=== PATIENT | male | born 1975 | race Caucasian/White ===

== ENCOUNTER 2023-10-16 09:52 | Inpatient (IN) | payer OTHER, SELFPAY ==
[2023-10-14 12:57] VITALS: BP 198/120
[2023-10-14 13:38] LABS: % Basophils 0.7 % (0-2); % Eosinophils 1.6 % (0-6); % Immature Granulocytes 1.4 % (0-0.5); % Lymphocytes 21.1 % (20.5-51.1); % Monocytes 8.2 % (1.7-9.3); Absolute Basophils 0.1 10^3/uL (0-0.2); Absolute Eosinophils 0.2 10^3/uL (0-0.7); Absolute Immature Granulocytes 0.1 10^3/uL (0-0.05); Absolute Lymphocytes 2.1 10^3/uL (1.2-3.4); Absolute Monocytes 0.8 10^3/uL (0.1-0.6); Absolute Neutrophils 6.7 10^3/uL (1.4-6.5); Hematocrit 33.7 % (39.0-52.0); Hemoglobin 12.4 g/dL (13.0-18.0); Mean Corp Hgb Conc. 36.8 g/dL (33.0-37.0); Mean Corpuscular Hgb 28.4 pg (27.0-31.0); Mean Corpuscular Volume 77.3 fL (80.0-94.0); Mean Platelet Volume 9.7 fL (7.4-10.4); Nucleated Red Blood Cells % 0 % (-); Platelet Count 331 10^3/uL (130-400); Red Blood Cell Count 4.36 10^6/uL (4.70-6.10); Red Cell Dist. Width 13.2 % (11.5-14.5)
[2023-10-14 13:49] LABS: ALT (SGPT) 48 U/L (0-50); AST (SGOT) 43 U/L (17-59); Albumin 4.2 g/dl (3.5-5.0); Alkaline Phosphatase 82 U/L (38-126); Blood Urea Nitrogen 9 mg/dl (9-20); Carbon Dioxide 29 mmol/L (22-30); Chloride 100 mmol/L (98-107); Glucose 236 mg/dl (70-99); Potassium 3.7 mmol/L (3.5-5.1); Sodium 138 mmol/L (135-145); Total Bilirubin 0.6 mg/dl (0.2-1.3); Total Protein 6.5 g/dl (6.3-8.2); eGFR > 60.00
--- NOTE | 2023-10-14 13:53 | ED.CVA ---
History of Present Illness
General
Chief Complaint: CVA/TIA Symptoms
Source: patient and records
Time Seen by Provider: 10/14/23 13:38
Onset of Stroke Symptoms
Onset of symptoms known: No
Time pt last seen normal is known: No
History of Present Illness
History of Present Illness:
This patient is a 48-year-old male who has been in this current rehab facility with a history of methamphetamine abuse for the last 13 days. He has been reportedly doing well. Patient and staff noted that his speech appeared slurred as of last
night and continues today. He also reports numbness in his left hand. The symptoms have been continuous. 'Aphasia' is noted on his transfer record, patient does not demonstrate aphasia in the emergency department. There is no history of focal
weakness, clumsiness, chest pain, shortness of breath, fever, chills, nausea, vomiting, neck pain, recent trauma or falls. He does note a mild headache. Patient had a UDS at the facility which is positive for benzos which would be expected given
his recent detox for approximately 2 weeks ago. Patient denies recent drug use. Patient denies visual changes such as double vision or blurry vision, trouble swallowing.
Past History
Past History
ED Past Medical History: HTN, Psychiatric and Other (HIV)
Social History
Tobacco: Smoker
Drug: Former user
Personal: Single
Living: homeless
Phy Exam
Physical Exam
Physical Exam:
GENERAL: Alert , in no apparent distress
EYE: pupils equal and reactive, EOMI
NECK: Supple, no significant adenopathy.
ENT: o/p clr, mmm.
CARDIAC: Regular rate and rhythm .
LUNGS: Clear breath sounds bilaterally, no acute respiratory distress, no wheezes/rales/rhonchi
ABDOMEN: Soft, without focal tenderness, no r/g, no cvat
NEUROLOGICAL: Alert and oriented, no focal neuro deficits except slurred speech. [id number] normal, cranial nerves II through XII intact, sensory intact to light touch, gait normal, motor 5 out of 5, etc.
SKIN: Warm and dry, skin intact.
MUSCULOSKELETAL: No edema, well perfused.
PSYCH: Normal and appropriate interaction.
Scores
NIH Stroke Score
Level of Consciousness: 0 - Alert
LOC Questions: 0-Answers both correctly
LOC Commands: 0-Performs both correctly
Best Horizontal Gaze: 0-Normal
Visual Rodríguez: 0=Normal, no visual loss
Facial Palsy: 0=Normal, symmetrical
Motor - Right Arm: 0=No drift 10 seconds
Motor - Left Arm: 0=No drift 10 seconds
Motor - Right Le-No drift 5 seconds
Motor - Left Le-No drift 5 seconds
Limb Ataxia: 0-Absent
Sensation: 0-Normal
Best Language: 0-No aphasia
Dysarthria: 1-Mild slurring
Extinction and Inattention: 0-No abnormality
Total Score:: 1
Course
Orders/Labs/Results
Orders:
Orders
10/14/23 13:01
Electrocardiogram (*1) Urgent
Reason for Study: TIA/Stroke
CT Head W/o Iv Contrast Urgent
Comment:
Reason For Exam: slurred speech
EKG- Treatment ONCE
10/14/23 13:28
Complete Blood Count/With Diff Urgent
Comprehensive Metabolic Panel Urgent
10/14/23 15:00
Drug Screen, Urine [Urine Drug Abuse Screen] Urgent
Date Specimen was Collected: 10/14/23
Time Specimen was Collected: 14:59
Fentanyl, Urine Urgent
10/14/23 15:57
NEUROLOGY CONSULT Routine
Consulting Provider: Casper Borjas
Was physician already notified: Yes
10/14/23 16:08
Admit/Transfer Patient As Directed
Co-Sign Provider:
Level of Care: Observation services
Assign to:: Telemetry
Physician / Group: nilesh/hospitalist
Diagnosis: slurred speech tia r/o cva
Reason for Telemetry: CVA/TIA
Date to Stop Telemetry: 10/17/23
Time to Stop Telemetry: 11:00
10/14/23 16:09
Code Status As Directed
Resuscitation Status: Full Code
10/14/23 16:21
CT Head & Neck Angio W/wo IV Urgent
Comment:
Reason For Exam: pontine lesion. slurred speech
MR Brain W/o & With Contrast Routine
Comment:
Reason For Exam: pontine lesion. slurred speech
Recent pill cam endoscopy?: No
10/14/23 16:30
0.9% Sodium Chloride 1000 ml [Nss] 1,000 ml IV 80 mls/hr
10/14/23 18:20
Acetaminophen [Tylenol] 1,000 mg PO TIDPRN PRN
Calcium Carbonate Chewable [Tums] 1 tablet PO QIDPRN PRN
Dicyclomine [Bentyl] 20 mg PO TIDPRN PRN
Melatonin 6 mg PO HSPRN PRN
Tizanidine [Zanaflex] 4 mg PO TIDPRN PRN
Trazodone [Desyrel] 50 mg PO HSPRN PRN
10/14/23 18:20
Case Management Consult ONCE
Case Management Consult: Discharge Planning
Comment: stroke/tia
DIETARY CONSULT Routine
Reason for Consult: stroke/TIA
Benefits Consultant Urgent
Activity As Directed
Activity Level: Out of Bed-Early Mobility
NIH Stroke Scale As Directed
Directions: Per protocol
Comment: every shift and with any change in condition or mental status
Neurological Checks As Directed
Frequency: q4h
Additional Instructions:: q4h x 24h upon admission to the floor, then qshift & with any change in condition
and mental status
Patient Education As Directed
Type: Stroke education packet
Comment: provide to patient and family
Pneumatic Compression Sleeves As Directed
Type: Knee high
Swallow Screening CVA/TIA ONLY As Directed
Comment: NPO until swallowing screening completed
If patient FAILS swallow screening:: NPO, Speech Therapy consult, Aspiration Precautions
If patient PASSES swallow screening, diet:: Full Liquid
Above diet order entered?: Yes- passed screening
Vital Signs As Directed
Frequency: Per unit guidelines
Ot Eval And Treat Routine
Pt Eval And Treat Routine
Activity Level: Out of Bed-Early Mobility
Speech Therapy Eval & Treat Routine
DX Deep Vein Thrombosis Video Routine
10/14/23 18:38
HydrOXYZINE [Atarax] 50 mg PO Q6HPRN PRN
10/15/23 04:58
BMP [Basic Metabolic Panel] IN AM
Cardiovascular Evaluation IN AM
Glycohemoglobin (HgbA1c) IN AM
10/15/23 08:00
Bictegrav/Emtricit/Tenofov [Biktarvy 50-200-25 mg Tablet] 1 tablet PO DAILY
10/17/23 11:00
DC Protocol for Telemetry ONCE
Abnormal Lab Results
10/14/23 10/14/23
13:28 15:00
RBC 4.36 L 10^6/uL
(4.70-6.10)
Hgb 12.4 L g/dL
(13.0-18.0)
Hct 33.7 L %
(39.0-52.0)
MCV 77.3 L fL
(80.0-94.0)
Abs Immat Gran (auto) 0.1 H 10^3/uL
(0-0.05)
Absolute Neuts (auto) 6.7 H 10^3/uL
(1.4-6.5)
Absolute Monos (auto) 0.8 H 10^3/uL
(0.1-0.6)
Immature Gran % 1.4 H %
(0-0.5)
Glucose 236 H mg/dl
(70-99)
U Benzodiazepines Scrn Positive H
(Negative)
10/14/23 13:28
10/14/23 13:28
Vital Signs
Initial and Last Documented VS:
Initial Vital Signs
Temp Pulse Resp BP Pulse Ox
98.0 F 83 16 198/120 98
10/14/23 12:57 10/14/23 12:57 10/14/23 12:57 10/14/23 12:57 10/14/23 12:57
Last Documented Vital Signs
Temp Pulse Resp BP Pulse Ox
97.8 F 75 18 165/104 97
10/15/23 07:00 10/15/23 07:00 10/15/23 07:00 10/15/23 07:00 10/15/23 07:00
*Critical Care Note
Total Time (30-74mins, 75-104mins- exclusive of procedures): Not Applicable
Update Note
Update Note:
Patient presents to the Emergency Department with slurred speech
Number and Complexity of Problems Addressed at the Encounter
� Chronic conditions affecting care:
� Acute Exacerbation and/or Progression of Chronic Illness:
� Differential Diagnosis includes: But not limited to CVA, brain mass, medication effect, etc. etc.
Amount and/or Complexity of Data to be Reviewed and Analyzed
� I performed an independent evaluation of and my interpretation is:
EKG:
CT: Read by radiology NAD
Xrays:
Laboratory Studies:generally unremarkable uds pending
Other:
� Review of other/old records reveals:
� Clinical information was obtained by an independent historian:
� Prescriptions/Medications Considered but not given:considered asa however allergy (tongue swelling) noted
� Further testing considered but not performed:
Risk of Complications and/or Morbidity or Mortality of Patient Management
� Social determinants of health affecting care:
� Discussion with other providers (PCP, Hospitalists, Consultants, etc):
� Escalation of care including admission/observation vs risk of discharge considered: 338 Pm pt with continued sxs, concern re?CVA. Not a lytic/IAT candidate given NIH 1 and sxs began ?almost 24 hrs ago (unceratin onset but
definitely abnl as of dinner time yesterday). Case d/w hospitalist for admission. Considered given asa however given allergy, not able to safely give.
ED Attending Note
-
Portions of this chart may have been created with voice recognition software.� Occasional wrong word or��sound alike� substitutions may have occurred due to the inherent limitations of voice recognition software.
Discharge Plan
Departure
Patient Disposition: Admit
Date of Disposition: 10/14/23
Time of Disposition: 15:40
Admit to: Telemetry
Presentation/result/management discussed w/ accepting MD/DO: Hospitalist
Condition: Fair
Discharge Problem:
slurred speech
Interventions
Interventions:
*Risk Screen - Suicide Last Done: 10/14/23 13:38
*General Assessment Last Done: 10/14/23 13:39
*Neglect/Abuse Screening Last Done: 10/14/23 13:38
ED- Fall Risk Assessment Last Done: 10/14/23 18:14
*ED COVID-19 Vaccine History Last Done: 10/14/23 13:39
*Nursing Disposition Last Done: 10/14/23 18:14
ED- Pulmonary Assessment Last Done: 10/14/23 14:07
ED- Neurological Assessment Last Done: 10/14/23 14:07
ED- Cardiac Assessment Last Done: 10/14/23 14:07
ED Swallowing Screen Last Done: 10/14/23 14:07
Discharge Date and Time
Discharge Date/Time: 10/14/23 18:19
[2023-10-14 15:22] LABS: Amphetamines Negative (Negative); Barbiturates Negative (Negative); Benzodiazepines Positive (Negative); Buprenorphine Negative (Negative); Cocaine Negative (Negative); Marijuana Negative (Negative); Methadone Negative (Negative); Methamphetamines Negative (Negative); Opiates Negative (Negative); Phencyclidine Negative (Negative); Tricyclic Antidepressants Negative (Negative)
[2023-10-14 15:54] LABS: Fentanyl, Urine Negative (Negative)
--- NOTE | 2023-10-14 15:58 | HPS.HSE ---
Addendum entered and electronically signed by Valentin Del Angel MD 10/14/23 18:55:
allergic to asa.
start plavix load 300mg then 75mg daily.
Awaiting further neurology recs
Original Note:
Family Physician
-
Family Physician: NOT KNOW UNKNOWN - PT DOES
Chief Complaint
-
slurred speech
History of Present Illness
48-year-old male extensive past medical history is presenting from detox rehab facility with slurred speech. Patient stated he noticed slurred speech last night intermittently and then this morning and slurred speech persisted. Patient slurred
speech was noted at rehab and he was standing to the hospital. Patient has been in detox rehab and detoxing from methamphetamines. Smokes methamphetamines prior to arrival. Benzos on UDS was positive which was given at rehab. History of IV drug
abuse injecting heroin however quit 10 years ago. Denies any vision problems. Denies any nausea or vomiting. Denies any neck pain. States some mild tingling in left hand. Denies any chest pain or shortness of breath abdominal pain or dysuria
or hematuria. States he took aspirin long time ago and had tongue swelling. Denies allergies to Plavix.
Medical History
Past Medical History
Past Medical History: Reports Other
Additional Past Medical History:
HIV
Primary HTN
Prediabetes
History of tobacco abuse
History of IV drug abuse
Amphetamine abuse
Past Surgical History: Reports Appendectomy and Other (Hemorrhoid surgery)
Social History
Tobacco: Former Smoker
Alcohol: Occasional
Drug: Former User, IVDA (Current opioids heroin 10 years ago) and Other (Smokes amphetamines and currently in rehab)
Family History
Family History: Other (Stroke in father and brother)
Allergies / Home Medications
Allergies reflects when Allergies were last updated in [employer].
Home Medications with original date entered in [employer]
Allergy/Medication List:
Allergies
Allergy/AdvReac Type Severity Reaction Status Date / Time
aspirin Allergy Tongue Verified 10/14/23 13:00
Swelling
shellfish derived Allergy Shortness Verified 10/14/23 13:00
of Breath
Home Medications
acetaminophen 500 mg tablet (Tylenol Extra Strength) 1,000 mg PO TIDPRN PRN mild pain 10/14/23
bictegravir 50 mg-emtricitabine 200 mg-tenofovir alafenam 25 mg tablet (Biktarvy) 1 tab PO DAILY 10/14/23
bismuth subsalicylate 262 mg tablet (Pepto-Bismol) 524 mg PO Q6HPRN PRN gerd 10/14/23
calcium carbonate (Tums) 400 mg PO QIDPRN PRN gerd 10/14/23
clonidine HCl 0.1 mg tablet 0.1 mg PO Q6HPRN PRN hypertenison 10/14/23
dicyclomine 20 mg tablet 20 mg PO TIDPRN PRN spasms 10/14/23
docusate sodium 100 mg capsule (Colace) 100 mg PO BIDPRN PRN constipation 10/14/23
hydroxyzine pamoate 50 mg capsule 50 mg PO Q6HPRN PRN anxiety 10/14/23
ibuprofen 200 mg tablet (Advil) 600 mg PO Q6HPRN PRN mild pain 10/14/23
loperamide 2 mg tablet 2 mg PO Q8HPRN PRN diarrhea 10/14/23
magnesium hydroxide 400 mg/5 mL oral suspension (Milk of Magnesia) 2,400 mg PO TIDPRN PRN constipation 10/14/23
melatonin 3 mg tablet 6 mg PO HSPRN PRN sleep 10/14/23
ondansetron HCl 4 mg tablet 4 mg PO BIDPRN PRN nasuea 10/14/23
tizanidine 4 mg tablet 4 mg PO TIDPRN PRN spasms 10/14/23
trazodone 50 mg tablet 50 mg PO HSPRN PRN sleep 10/14/23
Review of Systems
-
History Source: Patient
A 12 point ROS was completed and negative except as noted: Yes
Physical Exam
Vital Signs
Vital Signs
Temp Pulse Resp BP Pulse Ox
98.0 F 83 16 198/120 98
10/14/23 12:57 10/14/23 12:57 10/14/23 12:57 10/14/23 12:57 10/14/23 12:57
Physical Exam
General: Well Developed, Well Nourished and No Apparent Distress
HEENT: NormoCephalic, Moist mucous membranes and Atraumatic
Respiratory: Clear
Cardiac: S1/S2 and Regular Rhythm; No Murmur or Rub
GI: Soft, Non Tender, Non Distended and Normal Bowel Sounds; No Organomegaly
Rectal: Deferred by Provider
Musculoskeletal: No Clubbing, No Cyanosis and No Edema
Skin: No Rash
Neuro: Awake, Alert, No Sensory Deficits and Slurred Speech; No Facial Droop, Tremors or Sedated
Psych: Calm
Laboratory Results
-
10/14/23 13:28
10/14/23 13:28
Laboratory Results
Total Bilirubin 0.6 mg/dl (0.2-1.3) 10/14/23 13:28
AST 43 U/L (17-59) 10/14/23 13:28
ALT 48 U/L (0-50) 10/14/23 13:28
Alkaline Phosphatase 82 U/L (38-126) 10/14/23 13:28
Impression/Plan
-
#Slurred speech and left hand tingling likely secondary TIA rule out CVA
Discussed with neurologist recommending CT head and neck angiogram and recommended MRI brain with and without contrast-ORDERED
Neurochecks and NIH stroke scale
Permissive hypertension
Allergy to aspirin can consider Plavix? Await further neurology recommendation
Physical and Occupational Therapy and speech therapy evaluation
Liquid diet for now till speech evaluation
Check lipid panel A1c
Neurology evaluation
Primary hypertension
Permissive hypertension for now
Restart meds tomorrow morning
Prediabetes
Check A1c
HIV unknown CD4 count
Continue Biktarvy
Polysubstance abuse amphetamines opioids
Return back to rehab upon discharge
States still has 50 days left for detox
DVT prophylaxis SCDs for now
I spent a total of 78 minutes with the patient or on the floor. More than 50% of this time involved counseling and coordination of care.
[2023-10-14] MEDS: PLAVIX 300 MG PO (19:26)
[2023-10-14] MEDS: NSS 1000 IV (19:26)
[2023-10-14 20:30] VITALS: BP 182/104; BMI 31.4
[2023-10-14 23:12] VITALS: BP 178/106
[2023-10-15] VITALS (8 sets, daily range): BP systolic 165–188; BP diastolic 98–118; PULSE 77; O2SAT 96
[2023-10-15 05:48] LABS: Blood Urea Nitrogen 7 mg/dl (9-20); Calcium 8.7 mg/dl (8.4-10.2); Carbon Dioxide 29 mmol/L (22-30); Chloride 102 mmol/L (98-107); Estimated Creatinine Clearance 112 ml/min; Glucose 162 mg/dl (70-99); HDL Cholesterol 34 mg/dl; LDL Cholesterol, Calculated 127 mg/dl; Potassium 3.5 mmol/L (3.5-5.1); Sodium 139 mmol/L (135-145); Total Cholesterol 204 mg/dl (50-199); Triglyceride 216 mg/dl (10-149); Very Low Density Lipoprotein 43 mg/dl (0-30); eGFR > 60.00
[2023-10-15] MEDS: NSS 1000 IV ×2 (05:59→17:55)
[2023-10-15] MEDS: PLAVIX 75 MG PO (09:18)
[2023-10-15] MEDS: BIKTARVY 50-200-25 MG TABLET 1 TABLET PO (09:22)
[2023-10-15 09:41] LABS: Glycohemoglobin (HgbA1c) 8.3 % (4.0-5.6)
[2023-10-15] MEDS: TYLENOL 1000 MG PO (09:58)
--- NOTE | 2023-10-15 10:25 | PTOTSP ---
Dysphagia Evaluation
Oral/pharyngeal swallowing suspected to be grossly WFL. Patient with at least moderate dysarthria. See patient care note for details.
Recommend:
1. Regular, Thin Liquids
2. Medications as best tolerated
3. General aspiration precautions
4. Full speech/language/cognitive evaluation if appropriate results of MRI of Brain.
[2023-10-15] MEDS: COZAAR 50 MG PO (11:34)
--- NOTE | 2023-10-15 11:44 | W.PN.HOSP.TC ---
Today's Communication/Plan
-
MRI pending
Continue Plavix
Blood pressure meds
Continue with statin
Diabetic meds/diabetic nurse practitioner consulted
Rehab evaluation
Assessment / Plan
Assessment / Plan
General: Well Developed, Well Nourished and No Apparent Distress
HEENT: NormoCephalic, Moist mucous membranes and Atraumatic
Respiratory: Clear
Cardiac: S1/S2 and Regular Rhythm; No Murmur or Rub
GI: Soft, Non Tender, Non Distended and Normal Bowel Sounds; No Organomegaly
Rectal: Deferred by Provider
Musculoskeletal: No Clubbing, No Cyanosis and No Edema
Skin: No Rash
Neuro: Awake, Alert, No Sensory Deficits and Slurred Speech; possible slight right facial Droop, Tremors or Sedated, moving all 4 extremities. No weakness noted
Psych: Calm
#Slurred speech and left hand tingling likely secondary TIA rule out CVA
Discussed with neurologist recommending CT head and neck angiogram and recommended MRI brain with and without contrast-ORDERED
Neurochecks and NIH stroke scale
Permissive hypertension window completed and start blood pressure meds
Allergy to aspirin and thus ordered Plavix 300 mg loading dose on admission and 75 mg Plavix daily
Physical and Occupational Therapy and speech therapy evaluation
passed shallow eval-diet advanced to regular food consistency
Cholesterol elevated also started on Lipitor
A1c elevated
Neurology evaluation
Primary hypertension
Permissive hypertension for now
Probably noncompliant as outpatient
Start Cozaar 50 mg
Start Lopressor 12.5 mg twice daily
As needed meds ordered
Start with strict blood pressure control
Diabetes mellitus type 2
A1c 8.3
Diabetic nurse petitioner consulted
Insulin sliding scale Accu-Cheks
Can probably start metformin however did receive IV contrast
Will need teaching and glucometer
HIV unknown CD4 count
Continue Biktarvy
Polysubstance abuse amphetamines opioids
Return back to rehab upon discharge
States still has 50 days left for detox
DVT prophylaxis SCDs for now
Anticipated Discharge: > 48 hours
Subjective/Interval History
-
Date of Service: October 15, 2023
remains with slurred speech
mild improvement per pt
bp elevated -states takes lopressor? not on home med list
Objective Data
-
Labs:
Laboratory Results
10/15/23
04:58
Sodium 139
Potassium 3.5
Chloride 102
Carbon Dioxide 29
BUN 7 L
Creatinine 0.8
Glucose 162 H
Calcium 8.7
Vital Signs:
Vital Signs
Temp Pulse Resp BP Pulse Ox
98.4 F 79 20 180/110 97
10/15/23 11:00 10/15/23 11:00 10/15/23 11:00 10/15/23 11:00 10/15/23 11:00
I&O
10/14/23 10/15/23 10/16/23
06:59 06:59 06:59
Intake Total 480 / 480
Output Total 300 / 300
Balance 180 / 180
Data Reviewed
-
Total Time Spent with Patient (in minutes): 58
[2023-10-15] MEDS: LOPRESSOR 12.5 MG PO ×2 (11:57→20:17)
[2023-10-15 12:16] LABS: Glucose - Point of Care 165 mg/dl (70-99)
--- NOTE | 2023-10-15 12:20 | PN.DE.MGMTRT ---
Insulin Management
- -
10/15/2023 Diabetes Management Consult
Patient admitted 10/13 for CVA/TIA symptoms, slurred speech, tingling L hand. PMH Diabetes, HTN, HIV, methamphetamine use. Currently in rehab for substance abuse. A1C 8.3%, CR .8, eGFR > 60.
Patient is awake alert and oriented, able to discuss diabetes management. States he had pre diabetes then diabetes and was started on metformin. He had a glucose monitor but does not know where it is.
Will start metformin 1000 mg first dose now then BID with low corrective insulin.
Provided Contour Next glucose monitor and instructed on steps to self monitor. Patient states he is familiar, reinforced.
Will follow.
Diabetes History
- -
Type of Diabetes: 2
Pre-Admission Diabetes Regimen
10/14/23 10/15/23
13:28 04:58
Creatinine 0.8 0.8
Lab Results
Hemoglobin A1c 8.3 % (4.0-5.6) H 10/15/23 04:58
Insulin Pump Settings
IP Diabetes Regimen
10/14/23 10/15/23 10/15/23
13:28 04:58 12:15
Glucose 236 H 162 H
POC Glucose 165 H
Meal type: Breakfast
Amount consumed: 100%
Patient Education
[2023-10-15] MEDS: GLUCOPHAGE 1000 MG PO ×2 (12:51→17:55)
--- NOTE | 2023-10-15 14:45 | CM ---
Patient seen bedside, initial assessment completed. Patient resides at [facility] in [place]. CM spoke with Nurse Practitioner at [facility], Mau ([phone]), reports patient is able to return when clear for discharge, [facility] will provide
transportation. Mau confirms patient pharmacy used is either [facility] in [facility] or [facility] in [place]. Patient PCP Silvia Cerrato. CM reviewed OBS form, refused to sign, placed in chart. Someone from venues will be dropping off patients phone and
clerk rating. CM will continue to follow for all discharge planning needs.
Plan; return to [facility] when stable.
[2023-10-15] MEDS: APRESOLINE 10 MG IV ×2 (15:46→23:10)
[2023-10-15 16:47] LABS: Glucose - Point of Care 179 mg/dl (70-99)
[2023-10-15] MEDS: LIPITOR 40 MG PO (17:55)
[2023-10-15] MEDS: NOVOLOG FLEXPEN-LOW RESISTANCE 1 UNITS SC (17:56)
[2023-10-15 21:57] LABS: Glucose - Point of Care 133 mg/dl (70-99)
[2023-10-16] MEDS: TUMS 1 TABLET PO (02:00)
--- NOTE | 2023-10-16 02:16 | W.PN.UPDATE ---
Update Note
Progress Note Update
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
No change to NIH (2)
Already on asa and plavix since 10/13
Neuro consult pending
[2023-10-16 03:09] VITALS: BP 182/101
[2023-10-16] MEDS: APRESOLINE 10 MG IV ×2 (03:31→10:01)
[2023-10-16 06:21] LABS: % Basophils 0.4 % (0-2); % Eosinophils 0.6 % (0-6); % Lymphocytes 8.6 % (20.5-51.1); % Monocytes 4.7 % (1.7-9.3); % Neutrophils 84.7 % (42.2-75.2); Absolute Basophils 0.1 10^3/uL (0-0.2); Absolute Eosinophils 0.1 10^3/uL (0-0.7); Absolute Immature Granulocytes 0.1 10^3/uL (0-0.05); Absolute Lymphocytes 1.1 10^3/uL (1.2-3.4); Absolute Monocytes 0.6 10^3/uL (0.1-0.6); Absolute Neutrophils 10.5 10^3/uL (1.4-6.5); Hematocrit 40.2 % (39.0-52.0); Hemoglobin 14.6 g/dL (13.0-18.0); Mean Corp Hgb Conc. 36.3 g/dL (33.0-37.0); Mean Corpuscular Hgb 28.2 pg (27.0-31.0); Mean Corpuscular Volume 77.6 fL (80.0-94.0); Mean Platelet Volume 9.5 fL (7.4-10.4); Nucleated Red Blood Cells % 0 % (-); Platelet Count 361 10^3/uL (130-400); Red Blood Cell Count 5.18 10^6/uL (4.70-6.10); Red Cell Dist. Width 13.2 % (11.5-14.5); White Blood Cell Count 12.4 10^3/uL (4.8-10.8)
[2023-10-16 06:48] LABS: Blood Urea Nitrogen 10 mg/dl (9-20); Calcium 9.9 mg/dl (8.4-10.2); Carbon Dioxide 23 mmol/L (22-30); Chloride 101 mmol/L (98-107); Estimated Creatinine Clearance > 125 ml/min; Glucose 187 mg/dl (70-99); Potassium 3.8 mmol/L (3.5-5.1); Sodium 137 mmol/L (135-145); eGFR > 60.00
[2023-10-16 07:46] VITALS: BP 196/111
--- NOTE | 2023-10-16 08:07 | PN.DE.MGMTRT ---
Insulin Management
- -
10/16/2023 Diabetes Management Consult Follow up
Patient admitted 10/13 for CVA/TIA symptoms, slurred speech, tingling L hand. PMH Diabetes, HTN, HIV, methamphetamine use. Currently in rehab for substance abuse. A1C 8.3%, CR .8, eGFR > 60.
Patient is awake alert and oriented, able to discuss diabetes management. States he had pre diabetes then diabetes and was started on metformin. He had a glucose monitor but does not know where it is.
Metformin 1000 mg BID started yesterday with low corrective insulin. Patient required 1 unit corrective pre dinner. Glucose range 133 to 179. Glucose fasting 187 and pre lunch 211. Will add Januvia 100 mg daily, first dose now. Will follow
Provided Contour Next glucose monitor and instructed on steps to self monitor. Patient states he is familiar, reinforced.
Will follow.
Diabetes History
- -
Type of Diabetes: 2
Pre-Admission Diabetes Regimen
10/16/23
05:45
Creatinine 0.7
Lab Results
Hemoglobin A1c 8.3 % (4.0-5.6) H 10/15/23 04:58
Insulin Pump Settings
IP Diabetes Regimen
10/15/23 10/15/23 10/15/23
12:15 16:45 21:56
Glucose
POC Glucose 165 H 179 H 133 H
10/16/23
05:45
Glucose 187 H
POC Glucose
Meal type: Lunch
Amount consumed: 100%
Patient Education
[2023-10-16 08:11] LABS: Glucose - Point of Care 195 mg/dl (70-99)
[2023-10-16] MEDS: NSS 1000 IV (08:42)
[2023-10-16] MEDS: NOVOLOG FLEXPEN-LOW RESISTANCE 1 UNITS SC ×2 (08:43→17:25)
[2023-10-16] MEDS: PLAVIX 75 MG PO (08:44)
[2023-10-16] MEDS: LOPRESSOR 12.5 MG PO (08:44)
[2023-10-16] MEDS: COZAAR 50 MG PO (08:45)
[2023-10-16] MEDS: GLUCOPHAGE 1000 MG PO ×2 (08:45→17:24)
--- NOTE | 2023-10-16 09:10 | CON.NEURO4 ---
Consultation - Neurology 4
-
CONSULTING PHYSICIAN: Casper Borjas MD (Neurology)
REFERRING PHYSICIAN: Hospitalist
DICTATED BY: Casper Borjas
DATE/TIME OF REQUEST: October 14, 2023
DATE/TIME OF CONSULTATION: October 14, 2023 1600
Reason for Consultation: Slurred speech
History of Present Illness:
This is a 48 year old right handed male who has presented to the hospital with chief complaint of slurred speech. Of hypertension HIV amphetamine abuse who had been in his usual state of health till Saturday night when he had difficulty speaking.
Patient was at the rehab facility for detox. He did not seek medical attention at the time of onset. He came to the emergency room the next day. There was no associated headaches dizziness numbness or weakness of the face or extremities. His
speech was slurred and he could form complete sentences. No difficulty swallowing. No history of falls or head injuries no loss conscious no seizures.
No loss of balance incoordination or gait impairment. Following admission his speech remains slurred.. -
Past Medical History: Hypertension HIV amphetamine abuse
Surgical History: Appendectomy hemorrhoid surgery
Family History: History of stroke in his father and brother
Social History: Quit smoking
Allergies: Aspirin
Home Medications: Biktarvy Klonopin
Review of Symptoms:
Patient denies any fever, headache, chest pain, shortness of breath, GI or symptoms.
�Per the HPI.�All systems are reviewed negative except above.
NIHSS = 1 (Dysarthria)
�-
Vital Signs:
The patient has a blood pressure of
emp Pulse Resp BP Pulse Ox
98.0 F 83 16 198/120 98
10/14/23 12:57 10/14/23 12:57 10/14/23 12:57 10/14/23 12:57 10/14/23 12:57
Physical Exam:
The patient is afebrile, heart sounds S1 and S2 are regular , and chest is clear to auscultation bilaterally.
Neurologic Examination:
The patient is awake, alert and oriented x 3. He is able to follow commands and answer questions appropriately. There is no aphasia. However significant dysarthria.
On cranial nerve assessment, pupils are 3 mm bilateral, round and reactive to light and accommodation. Visual mandujano are full. Extraocular movements are intact. Facial sensations are intact and bilaterally symmetrical.
There is (L) facial asymmetry. Hearing is intact bilaterally to normal conversation volume. Tongue palate and uvula are midline. Sternocleidomastoid strengths are full bilaterally. Motor strengths are 5/5 bilateral upper and lower extremities on
medical research Belkofski scale. There is no drift or involuntary movement noted. Deep tendon reflexes are 2+ bilateral upper and lower extremities and Babinski is absent bilaterally.
Sensations of pain, touch, temperature and vibration are intact and bilaterally symmetrical.. Coordination is intact by finger to nose bilaterally.
Romberg's positive gait is unsteady
Lab Results: 10/14/23 13:28
10/14/23 13:28
Laboratory Results
Total Bilirubin 0.6 mg/dl (0.2-1.3) 10/14/23 13:28
AST 43 U/L (17-59) 10/14/23 13:28
ALT 48 U/L (0-50) 10/14/23 13:28
Alkaline Phosphatase 82 U/L (38-126) 0
Neuro Imaging: CT head shows left pontine ischemia
Impression:
Mr. ROE MENJIVAR is a 48 year old M who has presented to the hospital with chief complaint of slurred speech secondary to left pontine ischemic infarct
Recommendations:
1. Plavix 75 mg daily
2. MRI Head
3. Speech therapy
4. Lipitor
5. PT/OT
6. Continue current HAART
7. Echocardiogram
8. Neurology follow up OP
Discussed patient care with: Hospitalist
[2023-10-16] MEDS: BIKTARVY 50-200-25 MG TABLET 1 TABLET PO (09:14)
--- NOTE | 2023-10-16 10:39 | W.PN.HOSP.TC ---
Today's Communication/Plan
-
Await neurology input
Assessment / Plan
Assessment / Plan
General: Well Developed, Well Nourished and No Apparent Distress
HEENT: NormoCephalic, Moist mucous membranes and Atraumatic
Respiratory: Clear
Cardiac: S1/S2 and Regular Rhythm; No Murmur or Rub
GI: Soft, Non Tender, Non Distended and Normal Bowel Sounds; No Organomegaly
Rectal: Deferred by Provider
Musculoskeletal: No Clubbing, No Cyanosis and No Edema
Skin: No Rash
Neuro: Awake, Alert, No Sensory Deficits and Slurred Speech; possible slight right facial Droop, Tremors or Sedated, moving all 4 extremities. No weakness noted
Psych: Calm
Acute left pontine stroke -confirmed on MRI. Neurology to see today. Continue Plavix. Patient allergic to aspirin. Suspect related to uncontrolled hypertension.
LDL 127, total cholesterol 204. Continue atorvastatin.
Essential hypertension -with hypertensive emergency, present on admission. Blood pressure still elevated. Patient states he has been on lisinopril 10 mg daily and 0.1 mg clonidine daily for the past 2 weeks prior to admission. Does not check
blood pressures at home. Has been in drug rehab in [place] for the past 2 weeks. Normally lives in [place].
Currently on losartan 50 mg daily, metformin 12.5 mg twice daily.
DM2 with hyperglycemia -hemoglobin A1c 8.3%. Continue metformin. Diabetes education. Outpatient follow-up. Weight loss encouraged.
HIV unknown CD4 count
Continue Biktarvy
Polysubstance abuse - amphetamines, opioids
Return back to rehab upon discharge
States still has 50 days left for detox
Obesity due to excess calories
Full code
Anticipated Discharge: Within 24 hours
Subjective/Interval History
-
Date of Service: October 16, 2023
Patient seen and examined. No complaints.
Objective Data
-
Labs:
Laboratory Results
10/16/23
05:45
WBC 12.4 H
Hgb 14.6
Hct 40.2
Plt Count 361
Sodium 137
Potassium 3.8
Chloride 101
Carbon Dioxide 23
BUN 10
Creatinine 0.7
Glucose 187 H
Calcium 9.9
Vital Signs:
Vital Signs
Temp Pulse Resp BP Pulse Ox
98.0 F 101 17 179/109 95
10/16/23 07:46 10/16/23 08:45 10/16/23 07:46 10/16/23 10:01 10/16/23 07:46
I&O
10/15/23 10/16/23 10/17/23
06:59 06:59 06:59
Intake Total 480 / 480 4320 / 4320
Output Total 300 / 300 4750 / 4750
Balance 180 / 180 -430 / -430
Review of Systems
-
History Source: Patient
All other systems: Reviewed and negative
[2023-10-16 11:53] LABS: Glucose - Point of Care 211 mg/dl (70-99)
[2023-10-16 12:10] VITALS: BP 185/106
[2023-10-16] MEDS: NOVOLOG FLEXPEN-LOW RESISTANCE 2 UNITS SC (12:32)
[2023-10-16] MEDS: PROCARDIA XL (EXTENDED RELEASE) 30 MG PO (12:32)
[2023-10-16] MEDS: ZOFRAN 4 MG IV ×2 (12:48→22:37)
[2023-10-16] MEDS: JANUVIA 100 MG PO (14:41)
[2023-10-16 15:55] VITALS: BP 190/90
[2023-10-16 17:12] LABS: Glucose - Point of Care 171 mg/dl (70-99)
[2023-10-16] MEDS: LIPITOR 40 MG PO (17:25)
[2023-10-16 19:40] VITALS: BP 144/87
[2023-10-16 21:16] LABS: Glucose - Point of Care 153 mg/dl (70-99)
[2023-10-16] MEDS: TYLENOL 1000 MG PO (22:37)
[2023-10-16 23:05] VITALS: BP 139/76
[2023-10-17 03:35] VITALS: BP 153/86
[2023-10-17 07:20] VITALS: BP 139/80
[2023-10-17 07:29] LABS: Glucose - Point of Care 134 mg/dl (70-99)
[2023-10-17] MEDS: NOVOLOG FLEXPEN-LOW RESISTANCE SC (07:36)
--- NOTE | 2023-10-17 08:20 | PN.DE.MGMTRT ---
Insulin Management
- -
10/17/2023 Diabetes Management Consult Follow up
Patient admitted 10/13 for CVA/TIA symptoms, slurred speech, tingling L hand. PMH Diabetes, HTN, HIV, methamphetamine use. Currently in rehab for substance abuse. A1C 8.3%, CR .8, eGFR > 60.
Patient is awake alert and oriented, able to discuss diabetes management. States he had pre diabetes then diabetes and was started on metformin. He had a glucose monitor but does not know where it is.
Metformin 1000 mg BID started 10/14 with low corrective insulin. Patient required 2 units corrective pre lunch. Glucose range 153 to 211. Januvia 100 mg daily added to regimen 10/15 .
10/16 Glucose fasting 134. Will make no change to current regimen.
Provided Contour Next glucose monitor and instructed on steps to self monitor. Patient states he is familiar, reinforced.
Will follow.
Diabetes History
- -
Type of Diabetes: 2
Pre-Admission Diabetes Regimen
Lab Results
Hemoglobin A1c 8.3 % (4.0-5.6) H 10/15/23 04:58
Insulin Pump Settings
IP Diabetes Regimen
10/16/23 10/16/23 10/16/23
11:51 17:05 21:15
POC Glucose 211 H 171 H 153 H
10/17/23
07:27
POC Glucose 134 H
Meal type: Breakfast
Amount consumed: 50%
Patient Education
[2023-10-17] MEDS: PROCARDIA XL (EXTENDED RELEASE) 30 MG PO (08:41)
[2023-10-17] MEDS: JANUVIA 100 MG PO (08:42)
[2023-10-17] MEDS: PLAVIX 75 MG PO (08:42)
[2023-10-17] MEDS: GLUCOPHAGE 1000 MG PO (08:45)
[2023-10-17] MEDS: COZAAR 50 MG PO (08:45)
[2023-10-17] MEDS: BIKTARVY 50-200-25 MG TABLET 1 TABLET PO (09:08)
[2023-10-17 11:30] VITALS: BP 159/90
--- NOTE | 2023-10-17 11:55 | CM ---
Addendum entered by Mahnaz 10/17/23 13:20:
CM spoke with Mau from [facility], discussed patient for discharge today. Staff will pick patient up at 3:00 p.m.
Plan; discharge to [facility]
Original Note:
Patient seen bedside, reports no needs to CM at this time. Patient hopeful for discharge today. CM will continue to follow for all discharge planning needs.
Plan; return to [facility] when stable, Mau ([phone]) [employer]IST, call when ready for discharge, [facility].
[2023-10-17 11:56] LABS: Glucose - Point of Care 172 mg/dl (70-99)
--- NOTE | 2023-10-17 12:00 | W.PN.NEURO.1 ---
Today's Communication / Plan
-
Patient may be discharged on Plavix with strict blood pressure control
Neuro Assessment/Plan
Assessment
48-year-old right-handed male with history of HIV amphetamine abuse uncontrolled hypertension who had a left pontine infarct
Plan
Continue Plavix
Subjective/Objective
Subjective Data
Date of Service: October 17, 2023
Pat feels better. Speech has improved. Minimal slurring. No aphasia
Objective Data
Vital Signs
Temp Pulse Resp BP Pulse Ox
36.6 C 91 20 159/90 97
10/17/23 11:30 10/17/23 11:30 10/17/23 11:30 10/17/23 11:30 10/17/23 11:30
Lab Results
10/16/23 05:45
10/16/23 05:45
Sodium 137 mmol/L (135-145) 10/16/23 05:45
Potassium 3.8 mmol/L (3.5-5.1) 10/16/23 05:45
BUN 10 mg/dl (9-20) 10/16/23 05:45
Glucose 187 mg/dl (70-99) H 10/16/23 05:45
Calcium 9.9 mg/dl (8.4-10.2) 10/16/23 05:45
LDL Cholesterol, Calc 127 mg/dl 10/15/23 04:58
Ur Buprenorphine Negative (Negative) 10/14/23 15:00
Patient Allergies
aspirin Allergy (Verified 10/14/23 13:00)
Tongue Swelling
shellfish derived Allergy (Verified 10/14/23 13:00)
Shortness of Breath
Review of Systems
-
History Source: Patient
All other systems: Reviewed and negative
Constitutional: No Symptoms
EENT: No Symptoms Reported
Respiratory: No Symptoms
Cardiac: No Symptoms
Abdomen/GI: No Symptoms
Genitourinary: No Symptoms
Musculoskeletal: No Symptoms
Skin: No Symptoms
Neuro: Other (Dull headaches)
Endocrine: No Symptoms
Hematologic / Lymphatic: No Symptoms
Allergy / Immunology: No Symptoms
Physical Exam
-
General: Well Developed, Well Nourished and No Apparent Distress
Eyes: OU Absent Papilledema
HEENT: Normocephalic, Atraumatic and Poor Dentition
Neck: No Bruits Bilaterally
Respiratory: Clear to Auscultation
Cardiac: Regular Rhythm and No Murmur
GI: Normal Bowel Sounds
Skin: Unremarkable
Extremities: No Clubbing
Psych: Unremarkable
Extended Neurological Exam
Mood & Affect: Mood Unremarkable, Affect Unremarkable and Anxious
Attention Span & Concentration: Awake, Alert, Interactive and No Difficulty with 2 Step Request
Memory: Unremarkable, Able to Recall, Recalls Objects and Recalls Short Term
Tremor: Hand Tremor Absent and Head Tremor Absent
Involuntary Movement: None
Speech: Quality Unremarkable, Quantity Unremarkable, Rate of Production Unremarkable and Dysarthric
Cranial Nerve II: Left Eye: Pupillary Reactivity Unremarkable and Pupillary Size Unremarkable
Cranial Nerve II: Right Eye: Pupillary Reactivity Unremarkable, Pupillary Size Unremarkable and Visual Rodríguez Grossly Intact
Cranial Nerves III, IV, : Extraocular Movement: Extraocular Movement Full in all Directions
Cranial Nerve V: Facial Sensation: Intact to Pin Prick and Intact to Light Touch
Cranial Nerve VII: Facial Symmetry: Normal Facial Symmetry
Cranial Nerve VIII: Hearing: Unremarkable Hearing to Normal Conversational Volume
Cranial Nerves IX, X: Palate Movement: Palate Elevation Symmetric
Cranial Nerve XI: Shoulder Shrug: Unremarkable
Cranial Nerve XII: Tongue Protusion: Midline
Muscle Strength, Overall: Full Throughout
Muscle Bulk & Tone: Bulk Unremarkable and Tone Unremarkable
Pronator Drift: No Drift in Upper Extremities and No Drift in Lower Extremities
Deep Tendon Reflexes: Trace Throughout
Cold Sensation: Unremarkable
Vibration Sensation: Unremarkable
Touch Sensation: Unremarkable
Coordination: [id number] Testing Unremarkable
Babinski Sign: Absent Bilaterally
Gait & Station: Unremarkable Arm Swing, Up from Seated Without Problem and Up from Lying with Difficulty
Modified Radford Score (MRS)
-
Modified Nilay Scale (mRS): No significant disability. Able to carry out usual activities.
Score: 1
[2023-10-17 12:11] VITALS: BP 183/98; PULSE 97; O2SAT 97
[2023-10-17] MEDS: NOVOLOG FLEXPEN-LOW RESISTANCE 1 UNITS SC (12:14)
--- NOTE | 2023-10-17 13:05 | W.PN.HOSP.TC ---
Today's Communication/Plan
-
discharge
Assessment / Plan
Assessment / Plan
General: Well Developed, Well Nourished and No Apparent Distress
HEENT: NormoCephalic, Moist mucous membranes and Atraumatic
Respiratory: Clear
Cardiac: S1/S2 and Regular Rhythm; No Murmur or Rub
GI: Soft, Non Tender, Non Distended and Normal Bowel Sounds; No Organomegaly
Rectal: Deferred by Provider
Musculoskeletal: No Clubbing, No Cyanosis and No Edema
Skin: No Rash
Neuro: Awake, Alert, No Sensory Deficits and Slurred Speech; possible slight right facial Droop, Tremors or Sedated, moving all 4 extremities. No weakness noted
Psych: Calm
Acute left pontine stroke -confirmed on MRI. Continue Plavix. Patient allergic to aspirin. Suspect related to uncontrolled hypertension.
LDL 127, total cholesterol 204. Continue atorvastatin. Outpatient neurology follow-up.
Echocardiogram completed, no obvious source of emboli.
Essential hypertension -with hypertensive emergency, present on admission. Blood pressure improved on current regimen, losartan and nifedipine.
DM2 with hyperglycemia -hemoglobin A1c 8.3%. Discharge on metformin, Januvia.
HIV unknown CD4 count
Continue Biktarvy
Polysubstance abuse - amphetamines, opioids
Return back to rehab upon discharge
States still has 50 days left for detox
Obesity due to excess calories
Full code
Dispo -medically stable for discharge today. To return back to drug rehab. Discussed with case management. Updated mother on the phone. Mother mentioned that Dereje has a long history of noncompliance with medical care, often cancels his
physician appointments. Refuses to take his meds. She understands that he is at high risk for recurrent strokes.
Importance of close outpatient follow-up reemphasized with patient.
33 min spent in discharge process.
Anticipated Discharge: Today
Subjective/Interval History
-
Date of Service: October 17, 2023
Patient seen and examined. No complaints.
Objective Data
-
Vital Signs:
Vital Signs
Temp Pulse Resp BP Pulse Ox
97.9 F 91 20 159/90 97
10/17/23 11:30 10/17/23 11:30 10/17/23 11:30 10/17/23 11:30 10/17/23 11:30
I&O
10/16/23 10/17/23 10/18/23
06:59 06:59 06:59
Intake Total 4320 / 4320 480 / 480
Output Total 4750 / 4750 640 / 640
Balance -430 / -430 -160 / -160
Review of Systems
-
History Source: Patient
All other systems: Reviewed and negative
--- NOTE | 2023-10-17 13:12 | W.DS.TRANS ---
DC Summary - [employer]
-
Discharge Instructions:
Discharge Diagnosis/Procedures Acute stroke
Diet Diabetic, Carb Controlled,Low Fat,Low
Cholesterol
Activity As tolerated
Driving Restrictions Not until seen by your Dr
Bathing Restrictions None
Instructions:
Stand-Alone Forms:
Changes to Home Medications: No
Discharge Medications:
DC Medications w/original date entered in [facility]
acetaminophen 500 mg tablet (Tylenol Extra Strength) 1,000 mg PO TIDPRN PRN mild pain 10/14/23
bictegravir 50 mg-emtricitabine 200 mg-tenofovir alafenam 25 mg tablet (Biktarvy) 1 tab PO DAILY HIV 10/14/23
bismuth subsalicylate 262 mg tablet (Pepto-Bismol) 524 mg PO Q6HPRN PRN gerd 10/14/23
calcium carbonate (Tums) 400 mg PO QIDPRN PRN gerd 10/14/23
dicyclomine 20 mg tablet 20 mg PO TIDPRN PRN spasms 10/14/23
docusate sodium 100 mg capsule (Colace) 100 mg PO BIDPRN PRN constipation 10/14/23
hydroxyzine pamoate 50 mg capsule 50 mg PO Q6HPRN PRN anxiety 10/14/23
loperamide 2 mg tablet 2 mg PO Q8HPRN PRN diarrhea 10/14/23
magnesium hydroxide 400 mg/5 mL oral suspension (Milk of Magnesia) 2,400 mg PO TIDPRN PRN constipation 10/14/23
melatonin 3 mg tablet 6 mg PO HSPRN PRN sleep 10/14/23
ondansetron HCl 4 mg tablet 4 mg PO BIDPRN PRN NAUSEA 10/14/23
tizanidine 4 mg tablet 4 mg PO TIDPRN PRN spasms 10/14/23
trazodone 50 mg tablet 50 mg PO HSPRN PRN sleep 10/14/23
atorvastatin 40 mg tablet 40 mg PO QPM #30 tabs 10/17/23
clopidogrel 75 mg tablet 75 mg PO DAILY #30 tabs 10/17/23
losartan 50 mg tablet 50 mg PO DAILY #30 tabs 10/17/23
metformin 1,000 mg tablet 1,000 mg PO BID@0800,1700 #60 tabs 10/17/23
nifedipine 30 mg tablet,extended release 30 mg PO DAILY #30 tabs 10/17/23
sitagliptin phosphate 100 mg tablet (Januvia) 100 mg PO DAILY #30 tabs 10/17/23
Home Medication Changes
Pending Results: No
[2023-10-17 15:03] VITALS: BP 143/95
== END 2023-10-17 15:49 | disposition other institution (70) | DRG 65 ==
LOC: 4 WEST ACU 09:52
PROVIDERS: Emergency Medicine; ADMITTING PHYSICIAN Hospitalist; ATTENDING PHYSICIAN Hospitalist; CONSULT PHYSICIAN Psychiatry & Neurology Neurology; EMERGENCY PHYSICIAN Emergency Medicine
DX: I63.89 Other cerebral infarction (principal); I16.1 Hypertensive emergency; R47.81 Slurred speech; Z21 Asymptomatic human immunodeficiency virus [HIV] infection status; I10 Essential (primary) hypertension; E11.65 Type 2 diabetes mellitus with hyperglycemia; F15.10 Other stimulant abuse, uncomplicated; F11.10 Opioid abuse, uncomplicated; Z87.891 Personal history of nicotine dependence; Z88.6 Allergy status to analgesic agent; Z82.3 Family history of stroke
CPT/HCPCS: 70450; 70496; 70498; 70553; 80048; 80053; 80061; 80306; 80307; 82962; 83036; 85025; 87070; 92610; 93005; 93306; 97129; 97163; 97167; 99285; A9575; Q9967